=== PATIENT | female | born 1985 | race Two or more races ===

== ENCOUNTER 2017-05-18 05:12 | Inpatient (IN) | payer OTHER ==
--- NOTE | ~2017-05-18 | DS ---
Unit #: [id number] #: [id number] Patient: CHINEDU RENDON [id number] [address] [address] [id number] I MR#: [id number] NAME: CHINEDU RENDON ROOM: 338 Age: 32 Sex: F Admission Date: 05/18/2017 : 1985 Discharge Date: 05/21/2017 Attending Physician: Rahul Trivedi M.D. Primary Care Physician: Haylie Leo M.D. DISCHARGE SUMMARY CONSULTANTS Dr. Zarco from gastroenterology services. Dr. Hager from hematology services. DIAGNOSTIC DATA LABORATORY: On discharge, white blood cell count 14.4, hemoglobin 8.6, hematocrit 28.6, platelets 154. Sodium 137, potassium 3.6, chloride 106, BUN 5, creatinine 0.4. Liver enzymes are normal. Blood cultures were no growth. Vitamin B12 was 258. Total iron is 10. TIBC 439, transferrin saturation is 2%, which is low. On admission, the patient's hemoglobin was 6.4 and hematocrit was 21.9. IMAGING: CT scan of the abdomen and pelvis which shows mild ventral abdominal wall hernia containing a knuckle of transvers colon, unchanged from the previous examination. No evidence of obstruction or incarceration. Somewhat patchy enhancement pattern of the liver with mild periportal edema. Uterus is mildly enlarged. IUD appears in satisfactory position. No discrete uterine masses are noted. This could reflect endometriosis or be within normal limits for this patient. Uterus is also noted to be retroverted. PROCEDURES PERFORMED EGD and colonoscopy. Preliminary result is normal. Biopsy has been done. Need to follow up as outpatient. Done by Dr. Zarco. HOSPITAL COURSE Ms. Rendon is a 32-year-old female who was admitted by my colleague, Dr. Trivedi with abdominal pain and symptomatic anemia. The patient came because of lightheadedness and abdominal discomfort. The patient's hemoglobin was 6.2. The patient was admitted to the telemetry unit. IV fluids were started. The patient received packed RBC transfusion. Dr. Hager was consulted. The patient has severe iron deficiency anemia. B12 level was in the 200 range and that was replaced. Folic acid was kind of low and that has been started. The patient did have leukopenia on admission. This was most likely from her illness. Granix was given. That did increase her WBC count. The patient has had diarrhea for more than three months. She has had weight loss. Dr. Zarco was consulted. EGD and colonoscopy were done, which were normal. Biopsy has been done. We do need to follow up on biopsy results. The patient may have endometriosis as per CT scan. The patient will need referral to electronic scale subassembler as an outpatient. The patient will be discharged home on the following medications. DISCHARGE MEDICATIONS Unit #: [id number] #: [id number] Patient: CHINEDU RENDON 1. Tylenol 650 mg q.6 h. p.r.n. 2. Folic acid 1 mg daily. 3. Cyanocobalamin 1000 mcg p.o. daily. PHYSICAL EXAMINATION VITALS: Blood pressure 99/66, respiratory rate 16, pulse 70, temperature 98.0, oxygen saturation 100%. CHEST: Fair air entry. No additional sounds. HEART: S1 and S2 positive. Regular rhythm. ABDOMEN: Soft. No tenderness. EXTREMITIES: Negative edema. DISCHARGE INSTRUCTIONS 1. The patient is being discharged home in stable condition. 2. Follow up with Dr. Leo in one week. 3. CBC to be done in one week. 4. The patient will need followup with Dr. Hager as an outpatient. 5. Follow up with electronic scale subassembler as outpatient for possible endometriosis. Dictated by... Jayden Fioer TD: 05/23/2017 08:29 JOB #: [id number] DISCHARGE SUMMARY Page 1 of 1 X Haylie Leo MD X DISCHARGE SUMMARY
--- NOTE | ~2017-05-18 | HP ---
Unit #: [id number] #: [id number] Patient: CHINEDU RENDON [id number] [address] [address] [id number] I MR#: [id number] NAME: CHINEDU RENDON ROOM: 338 Age: 32 Sex: F Admission Date: 05/18/2017 : 1985 Attending Physician: Rahul Trivedi M.D. Primary Care Physician: Haylie Leo M.D. HISTORY AND PHYSICAL REASON FOR ADMISSION 1. Symptomatic anemia. 2. Abdominal pain. HISTORY OF PRESENT ILLNESS Ms. Rendon is a 32-year-old female patient of Dr. Leo, who comes to the emergency room with the complaint of lightheadedness and abdominal discomfort. She was found with hemoglobin of 6.2. She otherwise denies any nausea or vomiting. Denies any abnormal vaginal bleeding. Denies any bloody stools or bloody emesis. Denies any chest pain, shortness of air, dyspnea, headache, dizziness, fever, chills, nausea, vomiting or diarrhea. PAST MEDICAL HISTORY None. PAST SURGICAL HISTORY None. SOCIAL HISTORY No history of tobacco, alcohol or illicit drugs. FAMILY HISTORY Unremarkable. ALLERGIES No known drug allergies. HOME MEDICATIONS None. REVIEW OF SYSTEMS Twelve point review of systems on this patient is basically negative except as above. PHYSICAL EXAMINATION GENERAL: The patient is a 32-year-old female in no acute distress. VITALS: Blood pressure 103/70, heart rate 57, respiratory rate 18, temperature 97.7. HEENT: Head is atraumatic. Pupils equal, round and reactive to light and accommodation. Extraocular muscles intact. NECK: Supple. No masses, jugular venous distension or bruit. CHEST: Clear to auscultation bilaterally. HEART: S1 and S2. No murmurs. Unit #: [id number] #: [id number] Patient: CHINEDU RENDON ABDOMEN: Soft. Tender to palpation around the periumbilical area. No rebound. Bowel sounds are diminished, but present. EXTREMITIES: Lower extremities without any cyanosis, clubbing or edema. NEUROLOGIC: The patient is grossly intact. No focal deficits. DIAGNOSTIC STUDIES IMAGING: CT of the abdomen and pelvis shows mild ventral abdominal wall hernia containing knuckle of the transverse colon, which is unchanged from the previous exam, with no evidence of obstruction or incarceration. There is also a patchy enhancement signal of the liver with mild periportal edema. The uterus is mildly enlarged. IUD appears in satisfactory position. No discrete uterine mass. Could reflect also endometriosis or be within normal limits for this patient. The uterus is also noted to be retrograde. LABORATORY: Chemistry significant with sodium of 133, potassium 3.2, BUN 6, creatinine 0.4. Liver enzymes within normal limits. AST 17, ALT 11, alkaline phosphatase 838, lipase 20, amylase 18. Iron panel shows iron at 10, PRBC 439, transferrin 313. Coagulation panel, PT 12.9, INR 1.2, PTT 26.7. Hematology, white blood cell count 2.8, hemoglobin post transfusion 9, hematocrit 29.1. Again, previous, pre transfusion, hemoglobin 6.2 and hematocrit 21.3. Platelets 141. ASSESSMENT/PLAN 1. Symptomatic anemia. Status post transfusion. Now status post evaluation per hematology, Dr. Hager evaluated the patient. She is getting IV transfusion. Continue to monitor labs. Follow up on hematology workup. 2. Abdominal discomfort with ventral hernia, which is unchanged from previous exam. Abdomen is soft. No signs of acute abdomen or incarceration. Will treat with supportive care and symptomatic management. 3. GI and DVT prophylaxis. Will start on PPI. KATERINE bass. Dictated by Jayden Marino/star TD: 05/19/2017 09:00 JOB #: [id number] HISTORY AND PHYSICAL Page 1 of 1 X Rahul Trivedi MD X HISTORY AND PHYSICAL
--- NOTE | ~2017-05-18 | CO ---
Unit #: [id number] #: [id number] Patient: CHINEDU RENDON [id number] [address] [address] [id number] I MR#: [id number] NAME: CHINEDU RENDON ROOM: 338 Age: 32 Sex: F Admission Date: 05/18/2017 : 1985 Attending Physician: Rahul Trivedi M.D. Primary Care Physician: Haylie Leo M.D. Consultation Date: 05/18/2017 CONSULTATION REPORT CHIEF COMPLAINT Anemia, iron deficiency, abdominal pain, endometritis, leukopenia, diarrhea. HISTORY OF PRESENT ILLNESS This is a 32-year-old female who has had diarrhea for several months. She has lost more than 20 pounds. The patient came in with nausea, vomiting, abdominal pain and chills. The patient had a CT of the abdomen and pelvis on 05/18/2017. It showed ventral hernia, unchanged. There is some patchy enhancing pattern of the liver with mild periportal edema. There is endometritis. Her liver enzymes have been normal. From a hematology point of view, CBC showed white blood cell count 2.8, hemoglobin 6.4, MCV 59, platelets 141. Creatinine is 0.4. LFTs are normal. Transferrin saturation is 2%. I reviewed the peripheral smear. RBC morphology is microcytic and hypochromic. There are myelocytes and some (1) . There is no blast. The patient still complains of abdominal discomfort. PAST MEDICAL HISTORY 1. Anemia. 2. Chronic diarrhea with weight loss. PAST SURGICAL HISTORY None. SOCIAL HISTORY No smoking. No alcohol. No drugs. She works for [employer]. She has four children. FAMILY HISTORY Negative cancers. Father had some abdominal disease, but exact type unknown. ALLERGIES No known drug allergies. REVIEW OF SYSTEMS CONSTITUTIONAL: No fever, no chills, no sweats, no weight loss. EYES: No visual symptoms. EARS, NOSE AND THROAT: There is no runny nose or sore throat or difficulty hearing. Unit #: [id number] #: [id number] Patient: CHINEDU RENDON CARDIOVASCULAR: No chest pain. No shortness of breath. No palpitations. No orthopnea. No PND. RESPIRATORY: No cough. No wheezing. No hemoptysis. GASTROINTESTINAL: No nausea, vomiting, diarrhea, constipation, hematochezia or melena. GENITOURINARY: No urinary frequency, hesitancy or urgency. No blood in the urine. MUSCULOSKELETAL: No muscle or joint pain. NEUROLOGIC: No headache. No numbness or tingling. No weakness. No seizure. PSYCHIATRIC: No anxiety, depression or mood disturbance. ENDOCRINE: No excessive urination or thirst. DERMATOLOGIC: No rash or change in the skin. ALLERGIC/IMMUNOLOGIC: No symptoms. HEMATOLOGIC/LYMPHATIC: Denies any symptoms. PHYSICAL EXAMINATION GENERAL: Patient is comfortable. ECOG is 0. The patient is pleasant. VITAL SIGNS: Afebrile, pulse 57, respiratory rate 18, O2 saturations 100%, blood pressure 102/70. HEENT: Moist mucosa. Pupils equally reactive to light. Extraocular muscles intact. Sclerae anicteric. No obvious bleeding from nasal mucosa or oral mucosa. Scalp normal. Hearing normal. NECK: No JVD. No lymphadenopathy. LYMPHATIC/HEMATOLOGIC: There is no palpable adenopathy in the neck, axilla or inguinal area. CARDIOVASCULAR: S1, S2. Regular rate and rhythm. No S3 or S4. RESPIRATORY: Chest symmetrical, normal. Clear to auscultation bilaterally. No wheezes, no rales, no rhonchi. No dullness to percussion. ABDOMEN/GASTROINTESTINAL: Abdomen is soft, nontender, nondistended. No hepatosplenomegaly. EXTREMITIES: There is no clubbing, no cyanosis, no edema. No varicose veins. NEUROLOGICAL: Patient is alert, awake and oriented x3. Cranial nerves II-XII are intact. Sensory grossly intact. Motor is 4/5 in all four extremities. Gait is normal. Station is normal. Language is normal. Memory is normal. DTRs +2 in all four extremities. MUSCULOSKELETAL: No joint swelling. No bony tenderness. No muscle tenderness. SKIN: No petechiae, no rash, no ecchymosis. PSYCHIATRIC: No anxiety. No delusions or hallucinations. There is no agitation. Eye contact is normal. Affect is appropriate. There is no flight of ideas. DIAGNOSTIC STUDIES IMAGING: As mentioned. LABORATORY: As mentioned. ASSESSMENT/PLAN 1. Anemia. MCV is low. Iron studies are low. Will give her intravenous iron, folic acid, and check B12 level. I encouraged her to take oral iron supplement as an outpatient. 2. Leukopenia. This is most likely from her illness. I will give her Granex. I reviewed the peripheral smear. There are no blasts. 3. The patient has had diarrhea for more than three months. She has had weight loss. She would probably benefit from a colonoscopy. 4. Endometritis. At present will observe. The patient has an IUD in Unit #: [id number] #: [id number] [facility] probably see NITROGEN OPERATOR. Dictated by... Jayden Hernandez TD: 05/19/2017 06:13 JOB #: [id number] CONSULTATION REPORT Page 1 of 1 X Eran Hager MD X CONSULTATION REPORT
--- NOTE | ~2017-05-18 | A ---
[facility] Nutrition Therapy DATE: 05/19/17 Patient: CHINEDU RENDON Physician: CHRISTOPHE Address: [address] Room/Bed: [address] [place] [address], Zip: [place] [address] Admit Date: 05/18/17 Date of : [birth year] Height: 5 7 Weight: 116 52.8 NUTRITIONAL ASSESSMENT: REASON: LOW BMI (18.2), 4 NUTRITIONAL RISK POINT PATIENT ADMITTED FOR ANEMIA AND ABDOMINAL PAIN PMH: NONE Anthropometrics: HT: 67", WT: 116# (52.7KG), BMI: 18.2 Labs: 05/19/17- BUN: 7, CREA: 0.5 Meds: ZOFRAN, MORPHINE, PROTONIX, FOLIC ACID, NACL, FERRLECIT I/O & Bowel function: 970/803 LBM: 05/18/17 Skin Integrity: INTACT, NO EDEMAN NOTED Estimated Nutrition Needs: INCREASED 2' LOW BMI Assessment: PATIENT IS A 32 Y/O FEMALE ADMITTED FOR ANEMIA AND ABDOMINAL PAIN. UPON ADMIT PATIENT'S HEMOGLOBIN WAS 6.2 AND SHE RECEIVED A BLOOD TRANSFUSION. HEMOGLOBIN IS NOW 9.1. PATIENT WAS FOUND TO HAVE A VENTRAL HERNIA AND SHE IS CURRENTLY ON HER MENSTRUAL CYCLE. PATIENT'S IRON WAS ALSO FOUND TO BE 10 WHICH IS LOW. PATIENT'S LABS HAVE IMPROVED FROM YESTERDAY (05/18). PATIENT STATED SHE'S HAD A 27# WEIGHT LOSS OVER THE LAST SEVERAL MONTHS. SHE IS LACTOSE INTOLERANT AND SHE DOES NOT EAT PORK. PATIENT HAS BEEN EXPERIENCING NAUSEA BUT SHE DENIED ANY VOMITING OR DIARRHEA, AND SHE IS STILL HAVING ABDOMINAL DISCOMFORT. PATIENT IS ON A REGULAR DIET WITH A 1500ML FLUID RESTRICTION. Dx: UNINTENTIONAL WEIGHT LOSS RT/ ABDOMINAL PAIN, CURRENT CONDITION AEB WEIGHT LOSS AND DECREASED APPETITE, LOW BMI Intervention: REGULAR DIET, 1500ML FLUID RESTRICTION, SUPPLEMENTATION Monitoring, Evaluation and Goals: 1. ADEQUATE PO INTAKES >50% OF MEALS 2. PREVENT, CORRECT MICRO/MACRO NUTRIENT DEFICIENCIES 3. WEIGHT; PROMOTE A STEADY WEIGHT GAIN TOWARDS A HEALTHY BMI OF 19-25, PREVENT FURTHER WEIGHT LOSS MONITOR: WEIGHTS, LABS, I/Os [facility] Nutrition Therapy DATE: 05/19/17 Patient: CHINEDU RENDON Physician: CHRISTOPHE Address: [address] Room/Bed: [address] [place] [address], Zip: [place] [address] Admit Date: 05/18/17 Date of : [birth year] Height: 5 7 Weight: 116 52.8 Recommendations: 1. CONTINUE REGULAR DIET WITH NO PORK OR DAIRY TOLERATED, AND A 1500ML FLUID RESTRICTION PER MD 2. SEND ENSURE CLEAR BID TO PROMOTE ADEQUATE KCAL AND PROTEIN INTAKES RD TO F/U PER PROTOCOL AND PRN R/T PATIENT MODERATELY COMPROMISED Respectfully, CAITLIN PADGETT RD, LD Food and Nutritional Services [facility] cc: client file
--- NOTE | ~2017-05-18 | CT2 ---
[facility] A Service of [facility] & [facility] RADIOLOGY TEXT RESULTS PATIENT: CHINEDU RENDON LOCATION: [facility] [address]-91 : [birth year] UNIT #: [id number] AGE: [address]: Rahul Trivedi MD SEX: F ORDER DR: [id number] [facility] [address] [place], [place] [address] [id number] I MR#: [id number] Acc #: [id number] NAME: CHINEDU RENDON : 1985 SEX: F STUDY DATE/TIME: 05/18/2017 8:27 UNIT: [facility] ROOM: 11764 STUDY DESCRIPTION: CT Abd and Pelv W Cont Attending Physician: Rahul Trivedi M.D. Ordering Physician: Emily Swanson A.P.R.N. Primary Care Physician: Haylie Leo M.D. MEDICAL IMAGING REPORT This report is preliminary unless electronic signature is present EXAM Abdomen and pelvis CT with contrast. HISTORY Left-sided to mid abdominal pain and vomiting for the past day. TECHNIQUE Axial images were obtained with intravenous contrast and compared with 09/14/2014. This CT exam was performed with one or more of the following radiation dose reduction techniques: automatic exposure control, adjustment of mA and/or kV according to patient size, and iterative reconstruction. FINDINGS The liver demonstrates a somewhat patchy enhancement pattern and there is mild periportal edema. Correlate with liver enzymes. No suspicious liver masses are seen and the biliary tree is nondilated. The spleen, pancreas, kidneys and adrenals have a normal appearance. No distended bowel loops are seen. There is a ventral abdominal wall hernia near the umbilicus that contains a knuckle of transverse colon. There is no evidence of incarceration or obstruction as a result and this is unchanged from the previous exam. No inflammatory changes are seen in bowel. Scans in the pelvis show an IUD in good position in the endometrial cavity. The uterus is retroverted and mildly enlarged without a definite mass. It measures 6.7 x 5.9 cm in transverse diameter. Correlate clinically for evidence of endometritis. IMPRESSION 1. Mild ventral abdominal wall hernia containing a knuckle of transverse colon unchanged from the previous exam with no evidence of obstruction or incarceration. 2. Somewhat patchy enhancement pattern of the liver with mild periportal edema. Correlate with liver enzymes. [facility] A Service of [facility] & [facility] RADIOLOGY TEXT RESULTS PATIENT: CHIENDU RENDON LOCATION: [facility] [address]-71 : [birth year] UNIT #: [id number] AGE: [address]: Rahul Trivedi MD SEX: F ORDER DR: 3. The uterus is mildly enlarged. The IUD appears in satisfactory position. No discrete uterine masses are noted. This could reflect endometritis or be within normal limits for this patient. The uterus is also noted to be retroverted. Dictated by... Vaughn Romero M.D. THIS IS AN ELECTRONICALLY VERIFIED REPORT Vaughn Romero M.D. at 05/18/2017 4:49 PM SCOTT/josh TD: 05/18/2017 15:39 JOB #: [id number] MEDICAL IMAGING REPORT Page 1 of 1 COPY
--- NOTE | ~2017-05-18 | CO ---
Unit #: [id number] #: [id number] Patient: CHINEDU RENDON [id number] [address] [address] [id number] I MR#: [id number] NAME: CHINEDU RENDON ROOM: 338 Age: 32 Sex: F Admission Date: 05/18/2017 : 1985 Attending Physician: Rahul Trivedi M.D. Primary Care Physician: Haylie Leo M.D. Consultation Date: 05/20/2017 CONSULTATION REPORT REASON FOR CONSULTATION Severe anemia and diarrhea. HISTORY OF PRESENTING ILLNESS Ms. Rendon is a 32-year-old [place] female. She was admitted yesterday with complaints of abdominal pain, found to be very severely anemic. She has been having upper abdominal pain which is much worse with food. It has been going on for the last several months. Over this time, she has lost more than 20 pounds. She also has intermittent diarrhea. There is no blood in the stool, there is no black stool, there is no dysphagia. She says her menstrual periods are nearly normal and does not feel like they are excessive. She has never had any previous surgery, she has never had any previous workup done. She moved from [place] years ago. PAST HISTORY Unremarkable. SOCIAL HISTORY Denies smoking, drug abuse or alcohol. FAMILY HISTORY No history of colon cancer in the family. ALLERGIES None. MEDICATIONS No medications at home. REVIEW OF SYSTEMS Complete ten point review of systems was done which is unremarkable other than as mentioned above. PHYSICAL EXAMINATION VITAL SIGN: Stable. General: No acute distress. HEENT: Pupils equal and reactive. Sclerae anicteric. Oral mucosa moist. NECK: No JVD, no lymphadenopathy. CHEST: Clear to auscultation bilaterally. CARDIOVASCULAR SYSTEM: Regular rate and rhythm. No murmurs. ABDOMEN: Soft. Mild epigastric tenderness. No guarding, no rebound, no masses palpable. No ascites. EXTREMITIES: Without any clubbing, cyanosis or edema. NEUROLOGICAL: Intact. Unit #: [id number] #: [id number] Patient: CHINEDU RENDON SKIN: Warm and dry. DIAGNOSTIC STUDIES IMAGING: CT scan shows ventral abdominal hernia without any evidence of obstruction or incarceration. LABORATORY: Lab work shows normal chemistries, normal LFTs, normal amylase and lipase. Severe iron deficiency. Hemoglobin on arrival was 6.2 with low MCV. ASSESSMENT AND PLAN Severe symptomatic anemia, iron deficiency: Most likely secondary to chronic iron blood loss through GI. Will need panendoscopy given her upper abdominal pain and diarrhea. I will plan on doing both upper and lower endoscopy for further evaluation. In the meantime, keep her on PPIs and give her iron infusions as has been started. Thank you, Dr. Leo, for this interesting consult. Will follow along. Dictated by... Donald Zarco M.D. MARILEE/ca TD: 05/21/2017 07:43 JOB #: [id number] CONSULTATION REPORT Page 1 of 1 X Donald Zarco MD X CONSULTATION REPORT
--- NOTE | ~2017-05-18 | OR ---
Unit #: [id number] #: [id number] Patient: CHINEDU RENDON [id number] [address] [address] [id number] [place] MR#: [id number] NAME: CHINEDU RENDON ROOM: 338 Date of Procedure: 05/21/2017 Admission Date: 05/18/2017 Surgeon: Donald Zarco M.D. : 1985 Attending Physician: Rahul Trivedi M.D. Primary Care Physician: Haylie Leo M.D. OPERATIVE REPORT PROCEDURES PERFORMED Esophagogastroduodenoscopy with biopsy and colonoscopy with biopsy. INDICATIONS FOR PROCEDURE The patient with severe iron-deficiency anemia; upper abdominal pain, worse with food; chronic diarrhea; and weight loss, undergoing evaluation with upper endoscopy and colonoscopy. MEDICATIONS Monitored anesthesia. POSTOPERATIVE FINDINGS 1. Upper endoscopy was normal. Normal stomach, duodenal bulb, distal duodenum as well as esophagus. Biopsies taken in the stomach looking for H pylori. 2. Colonoscopy completed to cecum and terminal ileum. Colonic mucosa was normal throughout. Random biopsies taken. Terminal ileum was normal also. PLAN Symptomatic treatment. Follow up on the pathology report. DESCRIPTION OF PROCEDURE The patient was explained of the procedure, risks, and benefits along with risks and benefits of anesthesia. She was brought to the endoscopy room. Propofol anesthesia was given. Bite block was placed. The scope was passed down the mouth into esophagus, stomach, duodenum, and distal duodenum. Findings as described. Biopsies taken. Gently, I pulled it out of the patient's mouth. At this time, she was turned around and repositioned for colonoscopy. Rectal exam was done, which was normal. Colonoscope was lubricated, passed up the rectum, advanced under direct vision all the way to the cecum. Cecum was identified by ileocecal valve and appendiceal orifice. Terminal ileum was intubated, shows normal mucosa. Colonic mucosa was normal throughout. Random biopsies taken. I retroflexed in the rectum, small hemorrhoids seen. Scope was gently pulled out. She tolerated it well. Dictated by... Donald Zarco M.D. Unit #: [id number] #: [id number] Patient: CHINEDU RENDON MARILEE/gerardo TD: 05/21/2017 13:31 JOB #: [id number] OPERATIVE REPORT Page 1 of 1 X Donald Zarco MD PROCEDURE OPERATIVE NOTE
[2017-05-18 06:31] LABS: URINE SOURCE CLEAN CATCH
[2017-05-18 06:42] LABS: URINE APPEARANCE CLEAR; URINE BILIRUBIN NEG (NEG); URINE BLOOD 3+ (NEG); URINE COLOR YELLOW; URINE GLUCOSE NEG (NEG); URINE KETONE NEG (NEG); URINE LEUKOCYTE ESTERASE NEG (NEG); URINE NITRATE NEG (NEG); URINE PROTEIN NEG (NEG); URINE SPECIFIC GRAVITY 1.004 (1.003-1.035); URINE UROBILINOGEN 0.2 MG/DL (NEG)
[2017-05-18 06:46] LABS: URINE BACTERIA AUWI NEG (NEGATIVE); URINE SQUAMOUS EPITHELIAL CELL OCC /[HPF]
[2017-05-18 07:09] LABS: CULTURE INDICATED? NO
[2017-05-18 07:10] LABS: UWBCS1 AUWI 0-2 (0-5)
[2017-05-18 07:29] LABS: BASOPHIL% 1.3 % (0-2.5); EOSINOPHIL% 1.2 % (0.0-7.0); HEMATOCRIT 21.3 % (35.0-45.0); LYMPHOCYTE# 1.5 X10e3 (1.0-3.5); LYMPHOCYTE% 49.9 % (17.0-45.0); MEAN CELL VOLUME 58.8 FL (83-96); MEAN PLATELET VOLUME 9.2 FL (6.5-11.5); MONOCYTE# 0.4 X10e3 (0-1.0); NEUTROPHIL# 1.1 X10e3 (1.5-7.1); NEUTROPHIL% 35.6 % (40-75); PLATELET COUNT 148 X10e3 (140-420); RED BLOOD COUNT 3.63 X10e (3.90-5.30); RED CELL DISTRIBUTION WIDTH 19.2 % (11.0-15.5); WHITE BLOOD COUNT 3.1 X10e3 (4.0-10.5)
[2017-05-18 07:37] LABS: DIFF IND YES; HEMOGLOBIN 6.2 gm/dL (12.0-16.0)
[2017-05-18 07:45] LABS: ALBUMIN SERUM 3.9 g/dL (3.5-5.0); BILIRUBIN,TOTAL 0.5 mg/dL (0.2-2.0); CALCIUM SERUM 8.8 mg/dL (8.4-10.2); CREATININE SERUM 0.4 mg/dL (0.6-1.4); GLOM FILT RATE Estimated 136.9 mL/min (>60); POTASSIUM 3.2 mmol/L (3.5-5.1); PROTEIN TOTAL SERUM 6.8 g/dL (6.0-8.3)
[2017-05-18 08:23] LABS: BASOPHIL% 1.1 % (0-2.5); EOSINOPHIL% 1.3 % (0.0-7.0); HEMATOCRIT 21.9 % (35.0-45.0); LYMPHOCYTE# 1.2 X10e3 (1.0-3.5); LYMPHOCYTE% 43.6 % (17.0-45.0); MEAN CELL VOLUME 59.4 FL (83-96); MEAN CORPUSCULAR HEMOGLOBIN 17.2 PG (28-34); MEAN PLATELET VOLUME 8.7 FL (6.5-11.5); MONOCYTE# 0.2 X10e3 (0-1.0); MONOCYTE% 8.3 % (3.0-12.0); NEUTROPHIL# 1.3 X10e3 (1.5-7.1); NEUTROPHIL% 45.7 % (40-75); PLATELET COUNT 141 X10e3 (140-420); RED BLOOD COUNT 3.69 X10e (3.90-5.30); WHITE BLOOD COUNT 2.8 X10e3 (4.0-10.5)
[2017-05-18 08:35] LABS: INR 1.2; PARTIAL THROMBOPLASTIN TIME 26.7 SECONDS (23.5-31.3); PROTHROMBIN TIME (PATIENT) 12.9 SECONDS (10.0-11.7)
[2017-05-18 09:00] LABS: HEMOGLOBIN 6.4 gm/dL (12.0-16.0)
[2017-05-18 09:01] LABS: DIFF IND NO
[2017-05-18 09:09] LABS: ANISOCYTOSIS MOD; PLATELET ESTIMATE NORMAL (NORMAL)
[2017-05-18 09:10] LABS: HYPOCHROMIA MOD; MICROCYTOSIS SL; OVALOCYTES PRESENT; POIKILOCYTOSIS SL
[2017-05-18] MEDS ORDERED: NO MEDICATIONS (10:05)
[2017-05-18 13:55] LABS: IRON SERUM 10 ug/dL (28-170); TOTAL IRON BINDING CAPACITY 439 ug/dL (269-535); TRANSFERRIN 313 mg/dL (192-382); TRANSFERRIN SATURATION 2 % (20-50)
[2017-05-18 18:53] LABS: HEMATOCRIT 29.1 % (35.0-45.0)
[2017-05-19 06:01] LABS: ALBUMIN SERUM 3.6 g/dL (3.5-5.0); BILIRUBIN,TOTAL 0.9 mg/dL (0.2-2.0); CALCIUM SERUM 8.7 mg/dL (8.4-10.2); CREATININE SERUM 0.5 mg/dL (0.6-1.4); GLOM FILT RATE Estimated 127.2 mL/min (>60); MAGNESIUM 1.9 mg/dL (1.6-3.0); POTASSIUM 4.3 mmol/L (3.5-5.1); PROTEIN TOTAL SERUM 6.3 g/dL (6.0-8.3)
[2017-05-19 06:39] LABS: HEMATOCRIT 30.9 % (35.0-45.0); HEMOGLOBIN 9.1 gm/dL (12.0-16.0); MEAN CORPUSCULAR HEMOGLOBIN 19.4 PG (28-34); MEAN CORPUSCULAR HGB CONC 29.6 g/dL (30-36); MEAN PLATELET VOLUME 9.1 FL (6.5-11.5); RED BLOOD COUNT 4.72 X10e (3.90-5.30); RED CELL DISTRIBUTION WIDTH 24.8 % (11.0-15.5)
[2017-05-19 06:42] LABS: WHITE BLOOD COUNT 16.1 X10e3 (4.0-10.5)
[2017-05-19 06:43] LABS: MEAN CELL VOLUME 65.6 FL (83-96)
[2017-05-20 06:55] LABS: HEMATOCRIT 30.4 % (35.0-45.0); HEMOGLOBIN 9.1 gm/dL (12.0-16.0); MEAN CORPUSCULAR HEMOGLOBIN 19.5 PG (28-34); MEAN CORPUSCULAR HGB CONC 29.9 g/dL (30-36); MEAN PLATELET VOLUME 9.1 FL (6.5-11.5); RED BLOOD COUNT 4.67 X10e (3.90-5.30); RED CELL DISTRIBUTION WIDTH 26.1 % (11.0-15.5); WHITE BLOOD COUNT 20.9 X10e3 (4.0-10.5)
[2017-05-21 05:12] LABS: URINE APPEARANCE CLEAR; URINE BLOOD 3+ (NEG); URINE COLOR DK YELLOW; URINE GLUCOSE NEG (NEG); URINE KETONE NEG (NEG); URINE LEUKOCYTE ESTERASE 1+ (NEG); URINE NITRATE NEG (NEG); URINE PROTEIN NEG (NEG); URINE SPECIFIC GRAVITY 1.024 (1.003-1.035); URINE UROBILINOGEN 0.2 MG/DL (NEG)
[2017-05-21 05:14] LABS: URBCS1 AUWI 100-200 /[HPF] (0-2); URINE BACTERIA AUWI NEG (NEGATIVE); URINE SQUAMOUS EPITHELIAL CELL NONE SEEN /[HPF]
[2017-05-21 05:22] LABS: URINE BILIRUBIN NEG (NEG)
[2017-05-21 06:14] LABS: HEMATOCRIT 28.6 % (35.0-45.0); HEMOGLOBIN 8.6 gm/dL (12.0-16.0); MEAN CELL VOLUME 65.7 FL (83-96); MEAN CORPUSCULAR HEMOGLOBIN 19.8 PG (28-34); MEAN CORPUSCULAR HGB CONC 30.1 g/dL (30-36); MEAN PLATELET VOLUME 8.5 FL (6.5-11.5); RED BLOOD COUNT 4.36 X10e (3.90-5.30); RED CELL DISTRIBUTION WIDTH 26.5 % (11.0-15.5); WHITE BLOOD COUNT 14.4 X10e3 (4.0-10.5)
[2017-05-21 06:51] LABS: ALBUMIN SERUM 3.9 g/dL (3.5-5.0); BILIRUBIN,TOTAL 0.5 mg/dL (0.2-2.0); BUN/CREATININE RATIO 12.5; CALCIUM SERUM 8.9 mg/dL (8.4-10.2); CREATININE SERUM 0.4 mg/dL (0.6-1.4); GLOM FILT RATE Estimated 136.9 mL/min (>60); POTASSIUM 3.6 mmol/L (3.5-5.1); PROTEIN TOTAL SERUM 6.6 g/dL (6.0-8.3)
[2017-05-21] MEDS ORDERED: B-121000 MC1 PO (14:51)
[2017-05-21] MEDS ORDERED: FERROUS SULFATE PO (14:51)
[2017-05-21] MEDS ORDERED: FOLIC ACID PO (14:52)
== END 2017-05-21 18:41 | disposition home or self-care (01) | DRG 812 ==
LOC: CED 05:12 → CEDOF 11:29 → CED 11:53 → CEDOF 11:53 → C3A PCU 17:46
PROVIDERS: Emergency Medicine; Hospitalist; Internal Medicine; Internal Medicine Hematology; Nurse Practitioner; Physician Assistant Medical
PROC: 30233N1 Transfusion of Nonautologous Red Blood Cells into Peripheral Vein, Percutaneous Approach (ICD-10-PCS; 2017-05-18)
PROC: 0DB68ZX Excision of Stomach, Via Natural or Artificial Opening Endoscopic, Diagnostic (ICD-10-PCS; principal; 2017-05-21 12:34)
PROC: 0DBE8ZX Excision of Large Intestine, Via Natural or Artificial Opening Endoscopic, Diagnostic (ICD-10-PCS; 2017-05-21 12:34)
DX: D50.0 Iron deficiency anemia secondary to blood loss (chronic) (principal); E44.0 Moderate protein-calorie malnutrition; Z68.1 Body mass index [BMI] 19.9 or less, adult; K43.9 Ventral hernia without obstruction or gangrene; D72.819 Decreased white blood cell count, unspecified; R19.7 Diarrhea, unspecified; N80.9 Endometriosis, unspecified
CPT/HCPCS: 36415; 36430; 74177; 80053; 81003; 82150; 82607; 82947; 83540; 83550; 83690; 83735; 84703; 85014; 85018; 85025; 85027; 85610; 85730; 86850; 86900; 86901; 86923; 87040; 87086; 88305; 88312; 96361; 96374; 96375; 99285; J1447; J1885; J2250; J2270; J2405; J2916; J3420; P9016; Q9967

== ENCOUNTER → 2017-07-02 | Outpatient (CLI) | payer OTHER ==
[~2017-07-02] MED LIST: ACETAMINOPHEN325 MG PO; ACETAMINOPHEN650 M1 PO; B-121000 MC1 PO; FERROUS SULFATE PO; FOLIC ACID PO; LORTAB 5-325 M1 EACH PO; NO MEDICATIONS; PHENERGAN25 M1 PO
[2017-07-02 15:35] LABS: HEMATOCRIT 32.9 % (35.0-45.0); HEMOGLOBIN 11.2 gm/dL (12.0-16.0); MEAN CELL VOLUME 79.1 FL (83-96); MEAN CORPUSCULAR HEMOGLOBIN 26.9 PG (28-34); MEAN PLATELET VOLUME 8.3 FL (6.5-11.5); RED BLOOD COUNT 4.16 X10e (3.90-5.30); RED CELL DISTRIBUTION WIDTH 31.4 % (11.0-15.5); WHITE BLOOD COUNT 3.3 X10e3 (4.0-10.5)
== END | disposition home or self-care (01) ==
LOC: CAMB 14:00
PROVIDERS: Surgery
DX: Z01.812 Encounter for preprocedural laboratory examination (principal); K43.9 Ventral hernia without obstruction or gangrene
CPT/HCPCS: 36415; 85027

== ENCOUNTER 2017-07-10 05:57 | Observation (INO) | payer OTHER ==
[~2017-07-10] VITALS: Ht 170.2 cm; Wt 50.9 kg
--- NOTE | ~2017-07-10 | OR ---
Unit #: [id number] #: [id number] Patient: CHINEDU RENDON [id number] [address] [address] [id number] MR#: [id number] NAME: CHINEDU RENDON ROOM: 464 Date of Procedure: 07/10/2017 Admission Date: 07/10/2017 Surgeon: Eulalio Valadez Jr., M.D. : 1985 Attending Physician: Eulalio Valadez Jr., M.D. Primary Care Physician: Haylie Leo M.D. OPERATIVE REPORT INDICATION FOR THE PROCEDURE The patient is a 32-year-old [place] black female, who recently presented to the office complaining of a bulge in the central portion of her abdomen. This gets tender at times and she had a recent CT scan that revealed a ventral hernia with a bowel loop within it. No evidence of any incarceration or obstruction. She is brought in this time at her request for laparoscopic ventral hernia repair. She understands the procedure including the risks, including that of recurrence, chronic pain, and infection, and intra-abdominal organ injury, and bleeding and consents. PREOPERATIVE DIAGNOSIS Ventral hernia with incarceration. POSTOPERATIVE DIAGNOSIS Ventral hernia with incarceration, noting a 3 to 4 cm incarcerated ventral hernia mostly with omentum. ANESTHESIA General with endotracheal intubation and 0.5% Marcaine with epinephrine locally. SOFTWARE PUBLISHER Darcie Navarro. PROCEDURE PERFORMED Laparoscopic ventral hernia repair using a 4 x 6 inch Ventralight mesh. DESCRIPTION OF PROCEDURE The patient was positioned in supine position. After being anesthetized and intubated, she was prepped and draped in routine fashion for laparoscopic ventral hernia repair. A small 0.5 cm incision was made in the right lateral abdominal wall area and a 5-mm Optiview introduced in the abdomen followed by the camera. There was no evidence any injury related to introduction of the Optiview. Brief intra-abdominal exploration was carried out with the camera and there was a 3 to 4 cm defect centrally above the umbilicus with some incarcerated fatty tissue within it. This was reduced and an additional 5-mm port was placed in the right lower quadrant abdominal wall area and 11 mm in the left lower quadrant and a 5 mm in the left upper quadrant abdominal wall area. After the hernia was reduced, a 4 x 6 inch Ventralight mesh was tacked in 4 corners, placed intra-abdominal and using the Endo Close technique through four 1 mm incisions, the sutures were pulled up and clamped with hemostats Unit #: [id number] #: [id number] Patient: CHINEDU RENDON and the mesh was adjusted for excellent coverage over the area of the defect. After this was then placed, it was secured with SecureStrap to the anterior abdominal wall. The sutures holding it up were then lysed and there was excellent coverage again noted by the defect with good security of the mesh itself to the abdominal wall. After no bleeding was noted, the sutures holding the mesh up were then lysed and the fascia in the larger port site in the right and the left lower quadrant abdominal wall area was approximated with the neoClose technique. After this was complete, the CO2 was expressed from the abdomen. Ports removed. There was no evidence of any bleeding from the port sites. The port sites were injected with 0.5% Marcaine with epinephrine locally. The wounds were irrigated. After hemostasis achieved with Bovie cautery, skin edges were approximated with stainless-steel skin clips with skin stapling device. Sterile dressings were applied externally. Estimated blood loss less than 75 mL. The patient received less than 2000 mL crystalloid solution during the procedure. Sponges and instruments counts were correct x3. No drains used. No complications. The patient was taken to the recovery room with stable vital signs in satisfactory condition. Dictated by... Eulalio Valadez Jr. MMaegan RIVERA/gerardo TD: 07/10/2017 12:09 JOB #: [id number] OPERATIVE REPORT Page 1 of 1 X Eulalio Valadez MD X PROCEDURE OPERATIVE NOTE
[~2017-07-10 05:57] MED LIST changes: -ACETAMINOPHEN325 MG PO; -ACETAMINOPHEN650 M1 PO; -LORTAB 5-325 M1 EACH PO; -PHENERGAN25 M1 PO
[2017-07-10 07:59] LABS: BASOPHIL% 0.6 % (0-2.5); EOSINOPHIL% 0.9 % (0.0-7.0); HEMOGLOBIN 11.7 gm/dL (12.0-16.0); LYMPHOCYTE# 1.6 X10e3 (1.0-3.5); LYMPHOCYTE% 39.9 % (17.0-45.0); MEAN CELL VOLUME 80.2 FL (83-96); MEAN CORPUSCULAR HEMOGLOBIN 27.7 PG (28-34); MEAN CORPUSCULAR HGB CONC 34.5 g/dL (30-36); MEAN PLATELET VOLUME 8.4 FL (6.5-11.5); MONOCYTE# 0.2 X10e3 (0-1.0); MONOCYTE% 5.8 % (3.0-12.0); NEUTROPHIL# 2.2 X10e3 (1.5-7.1); NEUTROPHIL% 52.8 % (40-75); PLATELET COUNT 178 X10e3 (140-420); RED BLOOD COUNT 4.24 X10e (3.90-5.30); RED CELL DISTRIBUTION WIDTH 29.2 % (11.0-15.5); WHITE BLOOD COUNT 4.1 X10e3 (4.0-10.5)
[2017-07-10 08:01] LABS: DIFF IND YES
[2017-07-10 08:26] LABS: PLATELET ESTIMATE NORMAL (NORMAL)
[2017-07-10 08:27] LABS: HYPOCHROMIA SL; MICROCYTOSIS SL
[2017-07-11 04:08] LABS: HEMATOCRIT 29.7 % (35.0-45.0); HEMOGLOBIN 10.4 gm/dL (12.0-16.0); MEAN CELL VOLUME 80.1 FL (83-96); MEAN CORPUSCULAR HEMOGLOBIN 28.1 PG (28-34); MEAN PLATELET VOLUME 8.8 FL (6.5-11.5); RED BLOOD COUNT 3.71 X10e (3.90-5.30); RED CELL DISTRIBUTION WIDTH 28.2 % (11.0-15.5)
[2017-07-11] MEDS ORDERED: ACETAMINOPHEN325 MG PO (08:59)
[2017-07-11] MEDS ORDERED: ACETAMINOPHEN650 M1 PO (09:00)
[2017-07-11] MEDS ORDERED: LORTAB 5-325 M1 EACH PO (09:02)
[2017-07-11] MEDS ORDERED: PHENERGAN25 M1 PO (09:03)
== END 2017-07-11 13:50 | disposition home or self-care (01) ==
LOC: CSUR 05:57 → CPACUOF 09:40 → C4C 09:40 → CSUR 09:40 → CPACUOF 09:40 → CSUR 13:25 → CPACUOF 13:27 → C4C 13:27
PROVIDERS: Surgery
DX: K43.6 Other and unspecified ventral hernia with obstruction, without gangrene (principal); D64.9 Anemia, unspecified; R63.4 Abnormal weight loss; Z79.899 Other long term (current) drug therapy
CPT/HCPCS: 84703; 85025; 85027; 96372; 96374; 96375; 96376; C1781; G0378; J0131; J0330; J0690; J1100; J1650; J1885; J2250; J2270; J2405; J2550; J2710; J3010